=== PATIENT | female | born 1990 | race Caucasian/White ===

== ENCOUNTER 2017-02-07 01:10 | Emergency (ER) | payer BC ==
[~2017-02-07] VITALS: Ht 162.6 cm; Wt 45.5 kg
[~2017-02-07 01:10] MED LIST: FLAGYL500 MG PO; MONONESSA 35 MC1 TA1 PO; NEXIUM 20MG20 MG PO; NO HOME MEDICATIONS; NORCO 325 MG-51 TAB PO; ULTRAM 50MG TAB50 MG PO; ZOFRAN ODT4 MG PO
[2017-02-07 01:12] VITALS: TEMP 97.7
[2017-02-07] MEDS ORDERED: MOBIC 7.5MG7.5 MG PO (01:15)
[2017-02-07] MEDS ORDERED: ROBAXIN 50500 MG/TAB PO (01:16)
[2017-02-07] MEDS ORDERED: VYVANSE30 MG PO (01:16)
[2017-02-07] MEDS ORDERED: VALIUM 2MG T2 MG/TAB PO ×2 (01:17)
[2017-02-07] MEDS ORDERED: ZOLOFT 100MG100 MG PO (01:17)
[2017-02-07] MEDS ORDERED: CRYSELLE 30 MCG1 TAB PO (01:18)
[2017-02-07 01:51] LABS: PH 7 (5-8); SQUAMOUS EPITHELIAL 0-2 /hpf; URINE APPEARANCE Clear; URINE BACTERIA Rare /hpf; URINE BILIRUBIN Negative (NEGATIVE); URINE BLOOD 1+ (NEGATIVE); URINE COLOR Yellow; URINE GLUCOSE Negative (NEGATIVE); URINE KETONE Trace (NEGATIVE); URINE RBC 20-50 /hpf; URINE UROBILINOGEN Negative (NEGATIVE)
[2017-02-07 02:12] LABS: BASO # 0.1 (0.0-0.2); BASO % 0.4 % (0.0-2.0); EOS # 0.1 (0.0-0.7); GRAN # 8.6 (1.4-6.5); GRAN % 75.2 % (42.2-75.2); HEMATOCRIT 38.5 % (37.0-47.0); HEMOGLOBIN 13.8 g/dl (12.5-16.0); LYMPH % 17.8 % (20.0-51.0); MEAN CELL VOLUME 87 fl (80.0-100.0); MEAN CORPUSCULAR HEMOGLOBIN 31 pg (27.0-31.0); MEAN CORPUSCULAR HGB CONC 36 g/dl (33.0-37.0); MEAN PLATELET VOLUME 11.4 fl (7.4-10.4); MONO # 0.6 (0.1-0.6); MONO % 5.3 % (1.7-9.3); PLATELET COUNT 207 K/mm3 (130-400); RED BLOOD COUNT 4.42 M/mm3 (4.10-5.30); REDCELL DISTRIBUTION WIDTH-CV 11.8 % (11.5-14.5); WHITE BLOOD COUNT 11.5 K/mm3 (4.8-10.8)
[2017-02-07 02:23] LABS: ADJUSTED CALCIUM 8.4 mg/dL (8.4-10.2); BILIRUBIN,TOTAL 0.7 mg/dL (0.0-1.0); C-REACTIVE PROTEIN 5.7 mg/dL (0.0-0.9); CALCIUM 8.4 mg/dL (8.4-10.2); CREATININE, serum 0.61 mg/dL (0.52-1.25); POTASSIUM 3.5 mmol/L (3.4-5.0); TOTAL PROTEIN 6.9 gm/dL (6.4-8.2)
[2017-02-07] MEDS ORDERED: ZOFRAN ODT4 MG PO (04:23)
[2017-02-07] MEDS ORDERED: NORCO 325 MG-51 TAB PO (04:23)
[2017-02-07] MEDS ORDERED: OMNICEF 300MG300 MG PO (04:23)
[2017-02-07 04:38] VITALS: BP 132/87; PULSE 69
[2017-02-09] MEDS ORDERED: MACROBID 1100 MG/CAP PO (09:57)
== END 2017-02-07 04:39 | disposition home or self-care (01) ==
LOC: COL.ER 01:10
PROVIDERS: Emergency Medicine
DX: N12 Tubulo-interstitial nephritis, not specified as acute or chronic (principal); F90.9 Attention-deficit hyperactivity disorder, unspecified type; F32.9 Major depressive disorder, single episode, unspecified; K21.9 Gastro-esophageal reflux disease without esophagitis; Z88.1 Allergy status to other antibiotic agents; Z88.0 Allergy status to penicillin
CPT/HCPCS: J0696; J1170; J1885; J2405; J7030; Q9967

== ENCOUNTER → 2017-07-21 | Outpatient (REF) ==
[~2017-07-21] MED LIST changes: +CRYSELLE 30 MCG1 TAB PO; +MACROBID 1100 MG/CAP PO; +MOBIC 7.5MG7.5 MG PO; +OMNICEF 300MG300 MG PO; +ROBAXIN 50500 MG/TAB PO; +VALIUM 2MG T2 MG/TAB PO; +VYVANSE30 MG PO; +ZOLOFT 100MG100 MG PO
== END ==
LOC: WSOH 13:17 → WSPT 14:15
DX: Z02.1 Encounter for pre-employment examination (principal)

== ENCOUNTER 2019-03-25 11:19 | Outpatient (RCR) | payer OTHER | END 2019-06-23 | disposition home or self-care (01) | LOC: WSOH | DX: H10.211 Acute toxic conjunctivitis, right eye (principal); X58.XXXA Exposure to other specified factors, initial encounter; Y92.239 Unspecified place in hospital as the place of occurrence of the external cause; Y93.F9 Activity, other caregiving; Y99.0 Civilian activity done for income or pay; G43.909 Migraine, unspecified, not intractable, without status migrainosus; F32.9 Major depressive disorder, single episode, unspecified; F41.9 Anxiety disorder, unspecified; M54.30 Sciatica, unspecified side; Z79.899 Other long term (current) drug therapy ==

== ENCOUNTER 2020-03-24 13:40 | Outpatient (RCR) | payer OTHER | END 2020-06-15 | disposition home or self-care (01) | LOC: WSOH | DX: S20.219A Contusion of unspecified front wall of thorax, initial encounter (principal); S30.1XXA Contusion of abdominal wall, initial encounter; F41.8 Other specified anxiety disorders; F90.9 Attention-deficit hyperactivity disorder, unspecified type; N28.89 Other specified disorders of kidney and ureter; Q79.60 Ehlers-Danlos syndrome, unspecified; K21.9 Gastro-esophageal reflux disease without esophagitis; I73.00 Raynaud's syndrome without gangrene; G25.81 Restless legs syndrome; M26.609 Unspecified temporomandibular joint disorder, unspecified side; M54.30 Sciatica, unspecified side; Y99.0 Civilian activity done for income or pay ==

== ENCOUNTER → 2021-01-15 | Outpatient (CLI) | payer OTHER ==
[~2021-01-15] MED LIST changes: +CYMBALTA 30MG30 MG PO; +DESYREL 50MG50 MG PO; +FLORINEF ACETA0.1 MG PO; +NEURONTIN100 MG/CAP PO; +PHENERGAN 25 TA25 MG PO; +PRILOSEC 20MG20 MG PO; +REQUIP0.25 MG PO; +SINGULAIR 110 MG/TAB PO; +UBRELVY50 MG PO
== END ==
LOC: COL.RAD 12:30
DX: G43.109 Migraine with aura, not intractable, without status migrainosus (principal)

== ENCOUNTER 2021-03-30 07:03 | Outpatient (CLI) | payer OTHER ==
[~2021-03-30] VITALS: Ht 162.7 cm; Wt 47.4 kg
[~2021-03-30 07:03] MED LIST changes: -CYMBALTA 30MG30 MG PO; -DESYREL 50MG50 MG PO; -FLORINEF ACETA0.1 MG PO; -NEURONTIN100 MG/CAP PO; -PHENERGAN 25 TA25 MG PO; -PRILOSEC 20MG20 MG PO; -REQUIP0.25 MG PO; -SINGULAIR 110 MG/TAB PO; -UBRELVY50 MG PO
[2021-03-30 08:05] VITALS: BP 164/105; PULSE 106; PULSE 95; TEMP 98.2
[2021-03-30] MEDS ORDERED: CYMBALTA 30MG30 MG PO (08:36)
[2021-03-30] MEDS ORDERED: PHENERGAN 25 TA25 MG PO (08:36)
[2021-03-30] MEDS ORDERED: UBRELVY50 MG PO (08:37)
[2021-03-30] MEDS ORDERED: FLORINEF ACETA0.1 MG PO (08:38)
[2021-03-30] MEDS ORDERED: REQUIP0.25 MG PO (08:38)
[2021-03-30] MEDS ORDERED: DESYREL 50MG50 MG PO (08:39)
[2021-03-30] MEDS ORDERED: SINGULAIR 110 MG/TAB PO (08:39)
[2021-03-30] MEDS ORDERED: PRILOSEC 20MG20 MG PO (08:39)
[2021-03-30] MEDS ORDERED: NEURONTIN100 MG/CAP PO (08:40)
[2021-03-30 12:29] VITALS: BP 154/94; PULSE 86
[2021-03-30 12:45] VITALS: BP 157/106; PULSE 84
[2021-03-30 13:00] VITALS: BP 150/98; PULSE 84
--- NOTE | 2021-03-30 13:07 | NUR ---
DC instructions reviewed with pt, she expresses understanding. INT DC'd with catheter intact. She is assisted out to family member's car for transport home.
== END 2021-03-30 13:10 | disposition home or self-care (01) ==
LOC: COL.RAD 07:03
DX: R00.0 Tachycardia, unspecified (principal); Z20.822 Contact with and (suspected) exposure to COVID-19; Q79.60 Ehlers-Danlos syndrome, unspecified; Z82.49 Family history of ischemic heart disease and other diseases of the circulatory system
CPT/HCPCS: J2405; Q9967

== ENCOUNTER → 2021-05-18 | Outpatient (CLI) | payer OTHER ==
[~2021-05-18] MED LIST changes: +CYMBALTA 30MG30 MG PO; +DESYREL 50MG50 MG PO; +FLORINEF ACETA0.1 MG PO; +NEURONTIN100 MG/CAP PO; +PHENERGAN 25 TA25 MG PO; +PRILOSEC 20MG20 MG PO; +REQUIP0.25 MG PO; +SINGULAIR 110 MG/TAB PO; +UBRELVY50 MG PO
== END ==
LOC: COL.CARD 09:33
DX: M62.838 Other muscle spasm (principal)

== ENCOUNTER → 2021-06-01 | Outpatient (CLI) | payer OTHER | LOC: COL.RAD 13:32 | DX: R13.10 Dysphagia, unspecified (principal) ==

== ENCOUNTER 2021-06-27 10:15 | Outpatient (RCR) | payer OTHER | END 2021-07-01 | disposition home or self-care (01) | LOC: PT.GENESIS | DX: M25.551 Pain in right hip (principal) ==

== ENCOUNTER → 2021-07-06 | Outpatient (CLI) | payer OTHER | LOC: COL.RAD 06-14 09:00 | DX: M25.551 Pain in right hip (principal) | CPT/HCPCS: A9585; Q9967 ==

== ENCOUNTER 2021-09-06 11:00 | Outpatient (RCR) | payer OTHER | END 2021-09-14 | disposition home or self-care (01) | LOC: PT.GENESIS | DX: S73.003A Unspecified subluxation of unspecified hip, initial encounter (principal) ==

== ENCOUNTER 2021-10-04 11:45 | Outpatient (RCR) | payer OTHER | END 2021-10-09 09:38 | disposition home or self-care (01) | LOC: PT.GENESIS 11:45 | DX: Q65.6 Congenital unstable hip (principal); Q79.60 Ehlers-Danlos syndrome, unspecified ==

== ENCOUNTER → 2021-12-13 | Outpatient (RCR) | payer BC | END | disposition still patient (30) | LOC: PT.GENESIS | DX: I49.8 Other specified cardiac arrhythmias (principal); L94.9 Localized connective tissue disorder, unspecified; Q79.60 Ehlers-Danlos syndrome, unspecified ==

== ENCOUNTER 2022-01-08 13:30 | Outpatient (RCR) | payer BC | END 2022-01-12 | disposition home or self-care (01) | LOC: WSOT | DX: Q79.60 Ehlers-Danlos syndrome, unspecified (principal) ==

== ENCOUNTER 2022-01-11 13:45 | Outpatient (RCR) | payer BC | END 2022-01-12 | disposition home or self-care (01) | LOC: PT.GENESIS | DX: I49.8 Other specified cardiac arrhythmias (principal); Q79.60 Ehlers-Danlos syndrome, unspecified; M35.9 Systemic involvement of connective tissue, unspecified ==

== ENCOUNTER 2022-02-06 11:00 | Outpatient (RCR) | payer BC | END 2022-02-12 | disposition home or self-care (01) | LOC: WSOT | DX: Q79.60 Ehlers-Danlos syndrome, unspecified (principal) ==

== ENCOUNTER → 2022-02-12 | Outpatient (RCR) | payer BC | END | disposition home or self-care (01) | LOC: PT.GENESIS | DX: I49.8 Other specified cardiac arrhythmias (principal); Q79.60 Ehlers-Danlos syndrome, unspecified; M35.9 Systemic involvement of connective tissue, unspecified ==

== ENCOUNTER 2022-03-08 11:00 | Outpatient (RCR) | payer BC | END 2022-03-14 | disposition home or self-care (01) | LOC: WSOT | DX: Q79.60 Ehlers-Danlos syndrome, unspecified (principal) ==

== ENCOUNTER 2022-03-13 12:50 | Outpatient (RCR) | payer BC | END 2022-03-14 | disposition home or self-care (01) | LOC: WSST | DX: R13.13 Dysphagia, pharyngeal phase (principal); R09.89 Other specified symptoms and signs involving the circulatory and respiratory systems ==

== ENCOUNTER → 2022-03-14 | Outpatient (RCR) | payer BC | END | disposition home or self-care (01) | LOC: PT.GENESIS | DX: I49.8 Other specified cardiac arrhythmias (principal); Q79.60 Ehlers-Danlos syndrome, unspecified; M35.9 Systemic involvement of connective tissue, unspecified ==

== ENCOUNTER 2022-04-04 09:45 | Outpatient (RCR) | payer BC | END 2022-04-14 | disposition home or self-care (01) | LOC: WSST | DX: R13.12 Dysphagia, oropharyngeal phase (principal); R09.89 Other specified symptoms and signs involving the circulatory and respiratory systems ==

== ENCOUNTER 2022-04-05 09:00 | Outpatient (RCR) | payer BC | END 2022-04-14 | disposition home or self-care (01) | LOC: WSOT | DX: Q79.60 Ehlers-Danlos syndrome, unspecified (principal) ==

== ENCOUNTER 2022-04-12 13:00 | Outpatient (RCR) | payer BC | END 2022-04-14 | disposition home or self-care (01) | LOC: PT.GENESIS | DX: I49.8 Other specified cardiac arrhythmias (principal); Q79.60 Ehlers-Danlos syndrome, unspecified; M35.9 Systemic involvement of connective tissue, unspecified ==

== ENCOUNTER → 2022-05-02 | Outpatient (CLI) | payer BC | LOC: COL.RAD 07:30 | DX: K80.20 Calculus of gallbladder without cholecystitis without obstruction (principal); N20.0 Calculus of kidney ==

== ENCOUNTER 2022-05-06 14:24 | Outpatient (RCR) | payer BC | END 2022-05-15 | disposition home or self-care (01) | LOC: WSST | DX: R13.13 Dysphagia, pharyngeal phase (principal); R09.89 Other specified symptoms and signs involving the circulatory and respiratory systems ==

== ENCOUNTER → 2022-05-06 | Outpatient (CLI) | payer BC | LOC: COL.RAD 09:46 | DX: Q61.3 Polycystic kidney, unspecified (principal) | CPT/HCPCS: Q9967 ==

== ENCOUNTER 2022-05-08 11:15 | Outpatient (RCR) | payer BC | END 2022-05-15 | disposition home or self-care (01) | LOC: WSOT | DX: Q79.60 Ehlers-Danlos syndrome, unspecified (principal) ==

== ENCOUNTER 2022-05-14 09:30 | Outpatient (RCR) | payer BC | END 2022-05-15 | disposition home or self-care (01) | LOC: PT.GENESIS | DX: I49.8 Other specified cardiac arrhythmias (principal); Q79.60 Ehlers-Danlos syndrome, unspecified; M35.9 Systemic involvement of connective tissue, unspecified ==

== ENCOUNTER 2022-07-12 13:45 | Outpatient (RCR) | payer BC ==
[~2022-07-12 13:45] MED LIST changes: +BENTYL 10MG10 MG/CAP PO; +PROAIR RES117 MCG/Ac IH; +RT ADVAIR HFA 412 GM IH; +TAGAMET400 MG PO; +ZYRTEC 10MG10 MG PO
== END 2022-07-15 | disposition home or self-care (01) ==
LOC: PT.GENESIS
DX: Q79.60 Ehlers-Danlos syndrome, unspecified (principal); I49.8 Other specified cardiac arrhythmias; M35.9 Systemic involvement of connective tissue, unspecified

== ENCOUNTER 2023-01-07 13:00 | Outpatient (RCR) | payer BC | END 2023-01-12 | disposition home or self-care (01) | LOC: PT.GENESIS | DX: I49.8 Other specified cardiac arrhythmias (principal); Q79.60 Ehlers-Danlos syndrome, unspecified; M35.9 Systemic involvement of connective tissue, unspecified ==

== ENCOUNTER 2023-01-09 11:00 | Outpatient (RCR) | payer BC | END 2023-01-12 | disposition home or self-care (01) | LOC: WSOT | DX: M79.7 Fibromyalgia (principal) ==

== ENCOUNTER 2023-05-06 13:00 | Outpatient (RCR) | payer BC | END 2023-05-15 | disposition home or self-care (01) | LOC: PT.GENESIS | DX: Q79.60 Ehlers-Danlos syndrome, unspecified (principal); M35.9 Systemic involvement of connective tissue, unspecified; G90.A Postural orthostatic tachycardia syndrome [POTS]; I49.8 Other specified cardiac arrhythmias ==

== ENCOUNTER 2023-09-12 13:00 | Outpatient (RCR) | payer BC | END 2023-09-14 | disposition home or self-care (01) | LOC: PT.GENESIS | DX: I49.8 Other specified cardiac arrhythmias (principal); Q79.60 Ehlers-Danlos syndrome, unspecified; M35.9 Systemic involvement of connective tissue, unspecified ==

== ENCOUNTER 2023-09-12 14:30 | Outpatient (RCR) | payer BC | END 2023-09-14 | disposition home or self-care (01) | LOC: WSOT | DX: M79.7 Fibromyalgia (principal); G90.A Postural orthostatic tachycardia syndrome [POTS]; Q79.60 Ehlers-Danlos syndrome, unspecified; D47.02 Systemic mastocytosis ==

== ENCOUNTER 2023-10-10 13:45 | Outpatient (RCR) | payer BC | END 2023-10-15 | disposition home or self-care (01) | LOC: PT.GENESIS | DX: I49.8 Other specified cardiac arrhythmias (principal); Q79.60 Ehlers-Danlos syndrome, unspecified; M35.9 Systemic involvement of connective tissue, unspecified ==

== ENCOUNTER 2024-02-03 10:30 | Outpatient (RCR) | payer BC | END 2024-02-13 | LOC: WSOT | DX: Q79.60 Ehlers-Danlos syndrome, unspecified (principal); M79.7 Fibromyalgia ==

== ENCOUNTER 2024-08-10 13:00 | Outpatient (RCR) | payer MEDICARE, OTHER | END 2024-08-14 | disposition home or self-care (01) | LOC: PT.GENESIS | DX: Q79.60 Ehlers-Danlos syndrome, unspecified (principal); G90.A Postural orthostatic tachycardia syndrome [POTS] ==